=== PATIENT | male | born 1995 | race Two or more races ===

== ENCOUNTER → 2018-06-15 | Emergency (ER) | payer OTHER ==
[~2018-06-15] VITALS: Ht 177.8 cm; Wt 85.3 kg
[~2018-06-15] MED LIST: ZYRTEC10 MG
== END | disposition left against medical advice (07) ==
LOC: ER 02:38
DX: Z53.20 Procedure and treatment not carried out because of patient's decision for unspecified reasons (principal)

== ENCOUNTER 2018-06-16 16:20 | Emergency (ER) | payer OTHER ==
[~2018-06-16] VITALS: Ht 175.3 cm; Wt 83.5 kg
== END 2018-06-16 21:55 | disposition home or self-care (01) ==
LOC: ER 16:20
DX: K52.9 Noninfective gastroenteritis and colitis, unspecified (principal); G40.89 Other seizures